=== PATIENT | female | born 1930 | race Two or more races ===

== ENCOUNTER 2017-07-02 03:16 | Inpatient (IN) | payer MEDICARE, MEDICAID ==
[2017-07-02] VITALS (54 sets, daily range): BP systolic 64–167; BP diastolic 22–106
[~2017-07-02] VITALS: Ht 157.5 cm; Wt 81.0 kg
[~2017-07-02 03:16] MED LIST: AGGRENOX; AMITRIP PO; ASPI81CH PO; CAR3125T PO; GLIP10TA82 PO; INSUPOW; OMEPRZOLE PO; RAMI10CA38 PO; SIMV-8 PO; TOLT2TAB6 PO
[2017-07-02] MEDS ORDERED: DIGOXIN 0.25 MG TAB PO ONE (03:45)
[2017-07-02] MEDS ORDERED: SODIUM CHLORIDE 0.9% 1,000 ML IV ONE (03:45)
[2017-07-02 03:53] LABS: Basophils # (auto) 0 uL; Basophils % (auto) 0.2 % (0.0-2.0); Eosinophils # (auto) 0.2 uL; Eosinophils % (auto) 2.3 % (0.0-7.0); Hematocrit 39.4 % (36.0-46.0); Hemoglobin 12.9 g/dL (12.2-16.2); Lymphocytes # (auto) 1.8 uL; Lymphocytes % (auto) 22.1 % (10.0-50.0); Mean Corpuscular Hemoglobin 32.3 pg (28.0-32.0); Mean Corpuscular Hgb Conc. 32.8 g/dL (32.0-36.0); Mean Corpuscular Volume 98.5 fL (80.0-100.0); Monocytes # (auto) 0.5 uL; Monocytes % (auto) 6.7 % (0.0-12.0); Neutrophils # (auto) 5.5 uL; Neutrophils % (auto) 68.7 % (37.0-80.0); Nucleated Red Blood Cells % 0.1 %; Platelet Count (auto) 148 10^3/uL (140-450); Red Cell Distribution Width 13.8 % (11.8-14.3)
[2017-07-02 04:26] LABS: BUN/Creatinine Ratio 21.3; Bilirubin, Total 0.2 mg/dL (0.2-1.0); Calcium 8.1 mg/dL (8.5-10.1); Magnesium 2.4 mg/dL (1.6-2.6); Potassium 3.8 mmol/L (3.5-5.1); Total Protein 6.7 g/dL (6.4-8.2)
[2017-07-02 04:46] LABS: INR 0.98 (0.9-1.15); Partial Thromboplastin Time 27.8 sec (22.64-33.71); Prothrombin Time 10.7 sec (9.37-12.3)
[2017-07-02] MEDS ORDERED: HEPARIN IN NS 1000U/500ML (2UNIT/ML) 500 ML BAG/KIT IV ONE (06:30)
[2017-07-02] MEDS ORDERED: HEPARIN SODIUM (PORCINE) 5000 UNITS/ML 1ML VIAL ONE (06:40)
[2017-07-02] MEDS ORDERED: HEPARIN SODIUM (PORCINE) 5000 UNITS/ML 1ML VIAL IV ONE (06:45)
[2017-07-02] MEDS ORDERED: HEPARIN 1,000 UNITS/ml 1ML VIAL IV ONE (06:45)
[2017-07-02] MEDS ORDERED: AMIODARONE HCL (50 MG/ ML) 3 ML VIAL IV ONE (06:47)
[2017-07-02] MEDS ORDERED: NOREPINEPHRINE 8 MG/250ML KIT 250 ML IV SCH (06:49)
[2017-07-02] MEDS ORDERED: ONDANSETRON HCL 4 MG/2 ML VIAL ONE (06:51)
[2017-07-02] MEDS ORDERED: NOREPINEPHRINE 8 MG/250ML KIT 250 ML IV ONE (06:52)
[2017-07-02] MEDS ORDERED: AMIODARONE HCL 900 MG in DEXTROSE 500 ML IV SCH ×2 (06:59→12:59)
[2017-07-02] MEDS ORDERED: DIGOXIN (250MCG/ML) 2 ML AMPULE IV ONE ×2 (07:00→12:00)
[2017-07-02] MEDS ORDERED: ONDANSETRON HCL 4 MG/2 ML VIAL IV ONE (07:00)
[2017-07-02] MEDS ORDERED: AMIODARONE HCL 150 MG in D5W 5% 100 ML IV ONE (07:00)
[2017-07-02] MEDS ORDERED: METOPROLOL TARTRATE 1MG/1ML-5ML VIAL IV PRN (07:15)
[2017-07-02 07:46] LABS: Urine Bacteria FEW /hpf (None Seen); Urine Blood Negative /uL (Negative); Urine Hyaline Cast MANY /lpf (0 - 2); Urine Mucus FEW (None Seen); Urine Specific Gravity 1.027 (1.001-1.035); Urine WBC 9 /hpf (0 - 5)
[2017-07-02] MEDS: ENOXAPARIN SOD 80 MG/0.8ML SYRINGE SC SCH ×2 (08:00→23:00)
[2017-07-02] MEDS: PHENYLEPHRINE INJ 20 MG in D5W 5% 250 ML IV SCH ×2 (08:13→15:59)
[2017-07-02] MEDS ORDERED: LIDOCAINE 1% HCL (LOCAL ANESTH.) INJ 20ML MDV ONE (08:38)
[2017-07-02] MEDS ORDERED: DEXTROSE (50%) 50ML SYRG IV PRN (09:00)
[2017-07-02] MEDS ORDERED: NITROGLYCERIN 0.4 MG SL TAB SL PRN (09:00)
[2017-07-02] MEDS ORDERED: TEMAZEPAM 15 MG CAP PO PRN (09:00)
[2017-07-02] MEDS ORDERED: ACETAMINOPHEN 325 MG TAB PO PRN (09:00)
[2017-07-02] MEDS ORDERED: MORPHINE SULFATE 4 MG/ML SYR/VIAL IV PRN (09:00)
[2017-07-02] MEDS ORDERED: HYDROcodone-ACET 5/325MG TAB PO PRN (09:00)
[2017-07-02] MEDS: NOREPINEPHRINE 8 MG/250ML KIT 250 ML IV SCH (09:15)
[2017-07-02] MEDS: ASPirin-EC 81 mg tab PO SCH (09:38)
[2017-07-02] MEDS: PANTOPRAZOLE 40 MG/10 ML VIAL IV SCH (09:39)
[2017-07-02] MEDS: MULTIPLE VITAMIN TAB PO SCH (09:43)
[2017-07-02] MEDS ORDERED: FAMOTIDINE 20 MG TAB PO SCH ×2 (10:00)
[2017-07-02] MEDS: ACCU-CHEK COMFORT CURVE STRIP VI SCH ×3 (12:00→22:30)
[2017-07-02] MEDS: Boost Glucose Control 8 Ounces PO SCH ×2 (13:00→18:41)
[2017-07-02] MEDS: SODIUM CHLOR 0.9% PF (SALINE LOCK) 10ML VIAL IV SCH ×2 (14:00→22:30)
[2017-07-02] MEDS ORDERED: PHENYLEPHRINE IV 250 ML IV ONE ×2 (14:02→18:35)
[2017-07-02] MEDS: InsuLIN REG 1unit/0.01ml Soln (100units/ml) SC SCH ×3 (15:53→22:30)
[2017-07-02] MEDS ORDERED: FUROSEMIDE 100 MG/10ML VIAL IV ONE (16:45)
[2017-07-02] MEDS: MORPHINE SULFATE 4 MG/ML SYR/VIAL IV PRN (22:00)
[2017-07-02] MEDS: ATORVASTATIN 20 MG TAB PO SCH (22:00)
[2017-07-02] MEDS ORDERED: FUROSEMIDE 40 MG/4 ML VIAL ONE (22:10)
[2017-07-02] MEDS ORDERED: FUROSEMIDE 40 MG/4 ML VIAL IV ONE (22:15)
[2017-07-02] MEDS: ONDANSETRON HCL 4 MG/2 ML VIAL IV PRN (23:50)
[2017-07-03] VITALS (65 sets, daily range): BP systolic 95–177; BP diastolic 37–102
[2017-07-03] MEDS ORDERED: LORazepam 2MG/ML-1ML VIAL IV ONE (00:30)
[2017-07-03] MEDS ORDERED: LORazepam 2MG/ML-1ML VIAL ONE (00:36)
[2017-07-03] MEDS: PHENYLEPHRINE INJ 20 MG in D5W 5% 250 ML IV SCH ×2 (00:40→09:00)
[2017-07-03 04:39] LABS: Basophils # (auto) 0 uL; Basophils % (auto) 0.2 % (0.0-2.0); Eosinophils # (auto) 0 uL; Hematocrit 41.8 % (36.0-46.0); Hemoglobin 13.5 g/dL (12.2-16.2); Lymphocytes # (auto) 1.5 uL; Lymphocytes % (auto) 15.9 % (10.0-50.0); Mean Corpuscular Hemoglobin 32.4 pg (28.0-32.0); Mean Corpuscular Hgb Conc. 32.2 g/dL (32.0-36.0); Mean Corpuscular Volume 100.5 fL (80.0-100.0); Monocytes # (auto) 0.6 uL; Monocytes % (auto) 6.7 % (0.0-12.0); Neutrophils # (auto) 7.2 uL; Neutrophils % (auto) 77.2 % (37.0-80.0); Platelet Count (auto) 125 10^3/uL (140-450); Red Blood Cells 4.16 10^6/uL (4.0-5.20); Red Cell Distribution Width 14.1 % (11.8-14.3); White Blood Cell 9.3 10^3/uL (4.4-10.8)
[2017-07-03 04:54] LABS: Alanine Aminotransferase 360 U/L (13-56); Anion Gap 12 (5-15); Aspartate Aminotransferase 760 U/L (15-37); BUN/Creatinine Ratio 18.7; Blood Urea Nitrogen 43 mg/dL (7-18); Calcium 7.9 mg/dL (8.5-10.1); Carbon Dioxide 24 mmol/L (21-32); Chloride 100 mmol/L (98-107); GFR African American 26 mL/min; GFR Non-African American 21 mL/min; Glucose 256 mg/dL (74-106); Potassium 4.9 mmol/L (3.5-5.1); Sodium 136 mmol/L (136-145)
[2017-07-03 05:12] LABS: Alkaline Phosphatase 88 U/L (45-117); Bilirubin, Total 0.4 mg/dL (0.2-1.0); Total Protein 6.9 g/dL (6.4-8.2)
[2017-07-03] MEDS: SODIUM CHLOR 0.9% PF (SALINE LOCK) 10ML VIAL IV SCH ×3 (06:12→22:12)
[2017-07-03] MEDS: InsuLIN REG 1unit/0.01ml Soln (100units/ml) SC SCH ×4 (06:31→22:12)
[2017-07-03] MEDS: ACCU-CHEK COMFORT CURVE STRIP VI SCH ×4 (06:31→22:12)
[2017-07-03] MEDS: Boost Glucose Control 8 Ounces PO SCH ×3 (09:00→18:01)
[2017-07-03] MEDS: NOREPINEPHRINE 8 MG/250ML KIT 250 ML IV SCH (09:15)
[2017-07-03] MEDS: ONDANSETRON HCL 4 MG/2 ML VIAL IV PRN (09:26)
[2017-07-03] MEDS: PANTOPRAZOLE 40 MG/10 ML VIAL IV SCH (09:26)
[2017-07-03] MEDS ORDERED: LIDOCAINE 50MG/5ML INJ 5ML SYRINGE IV ONE (10:00)
[2017-07-03] MEDS ORDERED: BUMETANIDE (0.25 MG/ML) INJ 10ML IV ONE (10:00)
[2017-07-03] MEDS: ENOXAPARIN SOD 80 MG/0.8ML SYRINGE SC SCH ×2 (12:20→23:00)
[2017-07-03] MEDS: ASPirin-EC 81 mg tab PO SCH (12:31)
[2017-07-03] MEDS: MULTIPLE VITAMIN TAB PO SCH (12:31)
[2017-07-03] MEDS ORDERED: CLOPIDOGREL 300 MG TAB PO ONE (14:30)
[2017-07-03] MEDS: MORPHINE SULFATE 4 MG/ML SYR/VIAL IV PRN (20:20)
[2017-07-03] MEDS ORDERED: LABETALOL HCL 5 MG/ML ML 20ML VIAL IV ONE ×2 (21:45→21:58)
[2017-07-03] MEDS ORDERED: hydrALAZINE HCL 20 MG/ML VL IV PRN (21:45)
[2017-07-03] MEDS: ATORVASTATIN 20 MG TAB PO SCH (22:12)
[2017-07-04] VITALS (44 sets, daily range): BP systolic 114–189; BP diastolic 39–117
[2017-07-04 05:31] LABS: Basophils # (auto) 0.1 uL; Basophils % (auto) 0.7 % (0.0-2.0); Eosinophils # (auto) 0.1 uL; Eosinophils % (auto) 0.9 % (0.0-7.0); Hematocrit 39.5 % (36.0-46.0); Lymphocytes # (auto) 1.5 uL; Lymphocytes % (auto) 16.5 % (10.0-50.0); Mean Corpuscular Hemoglobin 32.7 pg (28.0-32.0); Mean Corpuscular Hgb Conc. 32.9 g/dL (32.0-36.0); Mean Corpuscular Volume 99.6 fL (80.0-100.0); Monocytes # (auto) 0.7 uL; Neutrophils # (auto) 6.9 uL; Neutrophils % (auto) 73.9 % (37.0-80.0); Platelet Count (auto) 110 10^3/uL (140-450); Red Blood Cells 3.96 10^6/uL (4.0-5.20); White Blood Cell 9.3 10^3/uL (4.4-10.8)
[2017-07-04] MEDS: SODIUM CHLOR 0.9% PF (SALINE LOCK) 10ML VIAL IV SCH ×3 (06:30→22:50)
[2017-07-04 06:34] LABS: Albumin 2.8 g/dL (3.4-5.0); BUN/Creatinine Ratio 26.3; Bilirubin, Total 0.3 mg/dL (0.2-1.0); Calcium 7.6 mg/dL (8.5-10.1); Magnesium 2.3 mg/dL (1.6-2.6); Potassium 4.8 mmol/L (3.5-5.1); Total Protein 6.7 g/dL (6.4-8.2)
[2017-07-04] MEDS: InsuLIN REG 1unit/0.01ml Soln (100units/ml) SC SCH ×4 (06:57→20:00)
[2017-07-04] MEDS: ACCU-CHEK COMFORT CURVE STRIP VI SCH ×4 (06:57→20:00)
[2017-07-04] MEDS: ONDANSETRON HCL 4 MG/2 ML VIAL IV PRN (08:45)
[2017-07-04] MEDS: Boost Glucose Control 8 Ounces PO SCH ×3 (08:46→18:07)
[2017-07-04] MEDS: PANTOPRAZOLE 40 MG/10 ML VIAL IV SCH (09:43)
[2017-07-04] MEDS: MULTIPLE VITAMIN TAB PO SCH (09:43)
[2017-07-04] MEDS: CLOPIDOGREL BISULFATE 75 MG TAB PO SCH (09:43)
[2017-07-04] MEDS: BUMETANIDE (0.25 MG/ML) INJ 10ML IV SCH (09:43)
[2017-07-04] MEDS: ASPirin-EC 81 mg tab PO SCH (09:43)
[2017-07-04] MEDS ORDERED: CARVEDILOL 3.125 MG TAB PO ONE (11:15)
[2017-07-04] MEDS: DOCUSATE SOD 100 MG CAP PO PRN (11:53)
[2017-07-04] MEDS ORDERED: DEXTROSE (50%) 50ML SYRG IV PRN (19:30)
[2017-07-04] MEDS ORDERED: ACCU-CHEK COMFORT CURVE STRIP VI SCH (22:00)
[2017-07-04] MEDS: INSULIN LANTUS (GLARGINE) 1 /0.01ml (100units/ml) SC SCH (22:51)
[2017-07-04] MEDS: CARVEDILOL 3.125 MG TAB PO SCH (22:51)
[2017-07-04] MEDS: ATORVASTATIN 20 MG TAB PO SCH (22:51)
[2017-07-04] MEDS: ENOXAPARIN SOD 80 MG/0.8ML SYRINGE SC SCH (22:54)
[2017-07-05] MEDS: ACCU-CHEK COMFORT CURVE STRIP VI SCH ×5 (00:19→21:40)
[2017-07-05] MEDS: InsuLIN REG 1unit/0.01ml Soln (100units/ml) SC SCH ×5 (00:24→21:39)
[2017-07-05 05:28] VITALS: BP 134/52
[2017-07-05] MEDS: SODIUM CHLOR 0.9% PF (SALINE LOCK) 10ML VIAL IV SCH ×3 (05:56→21:39)
[2017-07-05 06:06] LABS: Basophils # (auto) 0 uL; Basophils % (auto) 0.3 % (0.0-2.0); Eosinophils # (auto) 0.2 uL; Eosinophils % (auto) 1.9 % (0.0-7.0); Hematocrit 38.7 % (36.0-46.0); Hemoglobin 12.9 g/dL (12.2-16.2); Lymphocytes # (auto) 1.8 uL; Lymphocytes % (auto) 20.4 % (10.0-50.0); Mean Corpuscular Hemoglobin 32.5 pg (28.0-32.0); Mean Corpuscular Hgb Conc. 33.3 g/dL (32.0-36.0); Mean Corpuscular Volume 97.7 fL (80.0-100.0); Monocytes # (auto) 0.7 uL; Monocytes % (auto) 7.5 % (0.0-12.0); Neutrophils # (auto) 6.2 uL; Neutrophils % (auto) 69.9 % (37.0-80.0); Nucleated Red Blood Cells % 0.1 %; Platelet Count (auto) 115 10^3/uL (140-450); Red Blood Cells 3.97 10^6/uL (4.0-5.20); Red Cell Distribution Width 13.3 % (11.8-14.3); White Blood Cell 8.9 10^3/uL (4.4-10.8)
[2017-07-05 07:34] LABS: Albumin 2.7 g/dL (3.4-5.0); BUN/Creatinine Ratio 28.1; Bilirubin, Total 0.6 mg/dL (0.2-1.0); Total Protein 6.5 g/dL (6.4-8.2)
[2017-07-05 08:02] VITALS: BP 130/58
[2017-07-05] MEDS: Boost Glucose Control 8 Ounces PO SCH ×3 (08:33→18:44)
[2017-07-05] MEDS: PANTOPRAZOLE 40 MG/10 ML VIAL IV SCH (10:23)
[2017-07-05] MEDS: CARVEDILOL 3.125 MG TAB PO SCH ×2 (10:23→21:38)
[2017-07-05] MEDS: BUMETANIDE (0.25 MG/ML) INJ 10ML IV SCH (10:23)
[2017-07-05] MEDS: INSULIN LANTUS (GLARGINE) 1 /0.01ml (100units/ml) SC SCH ×2 (10:24→21:39)
[2017-07-05] MEDS: CLOPIDOGREL BISULFATE 75 MG TAB PO SCH (10:24)
[2017-07-05] MEDS: MULTIPLE VITAMIN TAB PO SCH (10:24)
[2017-07-05] MEDS: ASPirin-EC 81 mg tab PO SCH (10:24)
[2017-07-05] MEDS: ENOXAPARIN SOD 30 MG/0.3 ML SYRINGE SC SCH (10:37)
[2017-07-05] MEDS ORDERED: cefTRIAXone 1GM/10ml IVPUSH 10 ML IV ONE (11:45)
[2017-07-05] MEDS ORDERED: DEXTROSE (50%) 50ML SYRG IV PRN (11:45)
[2017-07-05 13:22] VITALS: BP 136/60
[2017-07-05 17:11] VITALS: BP 135/55
[2017-07-05] MEDS: ATORVASTATIN 20 MG TAB PO SCH (21:38)
[2017-07-05 22:00] VITALS: BP 155/62
[2017-07-06 02:12] VITALS: BP 148/67
[2017-07-06 05:03] VITALS: BP 147/71
[2017-07-06 06:26] LABS: Basophils # (auto) 0 uL; Basophils % (auto) 0.2 % (0.0-2.0); Eosinophils # (auto) 0.2 uL; Eosinophils % (auto) 2.8 % (0.0-7.0); Hematocrit 39.9 % (36.0-46.0); Hemoglobin 13.2 g/dL (12.2-16.2); Lymphocytes # (auto) 1.6 uL; Lymphocytes % (auto) 22.3 % (10.0-50.0); Mean Corpuscular Hemoglobin 32.1 pg (28.0-32.0); Mean Corpuscular Hgb Conc. 33.2 g/dL (32.0-36.0); Mean Corpuscular Volume 96.8 fL (80.0-100.0); Monocytes # (auto) 0.7 uL; Monocytes % (auto) 9.9 % (0.0-12.0); Neutrophils # (auto) 4.6 uL; Neutrophils % (auto) 64.8 % (37.0-80.0); Platelet Count (auto) 118 10^3/uL (140-450); Red Blood Cells 4.12 10^6/uL (4.0-5.20); Red Cell Distribution Width 13.5 % (11.8-14.3); White Blood Cell 7.1 10^3/uL (4.4-10.8)
[2017-07-06] MEDS: SODIUM CHLOR 0.9% PF (SALINE LOCK) 10ML VIAL IV SCH ×3 (06:28→21:51)
[2017-07-06] MEDS: InsuLIN REG 1unit/0.01ml Soln (100units/ml) SC SCH ×4 (06:28→22:04)
[2017-07-06] MEDS: ACCU-CHEK COMFORT CURVE STRIP VI SCH ×4 (06:29→22:03)
[2017-07-06 06:43] LABS: Calcium 8.5 mg/dL (8.5-10.1); Magnesium 2.3 mg/dL (1.6-2.6); Potassium 3.7 mmol/L (3.5-5.1)
[2017-07-06 06:47] LABS: BUN/Creatinine Ratio 31.5
[2017-07-06] MEDS: Boost Glucose Control 8 Ounces PO SCH ×3 (08:00→17:41)
[2017-07-06 09:00] VITALS: BP 130/62
[2017-07-06] MEDS: ASPirin-EC 81 mg tab PO SCH (09:20)
[2017-07-06] MEDS: cefTRIAXone 1GM/10ml IVPUSH 10 ML IV SCH (09:20)
[2017-07-06] MEDS: BUMETANIDE (0.25 MG/ML) INJ 10ML IV SCH (09:20)
[2017-07-06] MEDS: MULTIPLE VITAMIN TAB PO SCH (09:20)
[2017-07-06] MEDS: CLOPIDOGREL BISULFATE 75 MG TAB PO SCH (09:20)
[2017-07-06] MEDS: ENOXAPARIN SOD 30 MG/0.3 ML SYRINGE SC SCH (09:21)
[2017-07-06] MEDS: PANTOPRAZOLE 40 MG/10 ML VIAL IV SCH (09:21)
[2017-07-06] MEDS: CARVEDILOL 3.125 MG TAB PO SCH ×2 (09:21→21:51)
[2017-07-06] MEDS: INSULIN LANTUS (GLARGINE) 1 /0.01ml (100units/ml) SC SCH ×2 (09:31→22:03)
[2017-07-06] MEDS ORDERED: RAMIPRIL 10 MG CAP PO ONE (11:45)
[2017-07-06 13:00] VITALS: BP 126/43
[2017-07-06] MEDS: DOCUSATE SOD 100 MG CAP PO PRN (16:49)
[2017-07-06 17:00] VITALS: BP 139/57
[2017-07-06 21:36] VITALS: BP 134/56
[2017-07-06] MEDS: ATORVASTATIN 20 MG TAB PO SCH (21:51)
[2017-07-07 05:04] VITALS: BP 129/59
[2017-07-07] MEDS: SODIUM CHLOR 0.9% PF (SALINE LOCK) 10ML VIAL IV SCH ×3 (06:27→21:16)
[2017-07-07] MEDS: ACCU-CHEK COMFORT CURVE STRIP VI SCH ×4 (06:27→21:16)
[2017-07-07] MEDS: InsuLIN REG 1unit/0.01ml Soln (100units/ml) SC SCH ×5 (06:28→21:34)
[2017-07-07] MEDS: Boost Glucose Control 8 Ounces PO SCH ×3 (08:00→19:00)
[2017-07-07 08:06] LABS: BUN/Creatinine Ratio 35.3; Calcium 8.6 mg/dL (8.5-10.1); Potassium 3.6 mmol/L (3.5-5.1)
[2017-07-07 09:00] VITALS: BP 133/58
[2017-07-07] MEDS: ENOXAPARIN SOD 30 MG/0.3 ML SYRINGE SC SCH (10:00)
[2017-07-07] MEDS: BUMETANIDE (0.25 MG/ML) INJ 10ML IV SCH (10:00)
[2017-07-07] MEDS: PANTOPRAZOLE 40 MG/10 ML VIAL IV SCH (10:10)
[2017-07-07] MEDS: cefTRIAXone 1GM/10ml IVPUSH 10 ML IV SCH (10:10)
[2017-07-07] MEDS: ASPirin-EC 81 mg tab PO SCH (10:13)
[2017-07-07] MEDS: CLOPIDOGREL BISULFATE 75 MG TAB PO SCH (10:13)
[2017-07-07] MEDS: MULTIPLE VITAMIN TAB PO SCH (10:13)
[2017-07-07] MEDS: CARVEDILOL 3.125 MG TAB PO SCH ×2 (10:17→21:18)
[2017-07-07] MEDS: RAMIPRIL 10 MG CAP PO SCH (10:17)
[2017-07-07] MEDS: INSULIN LANTUS (GLARGINE) 1 /0.01ml (100units/ml) SC SCH ×2 (10:21→21:34)
[2017-07-07] MEDS: DOCUSATE SOD 100 MG CAP PO PRN (10:21)
[2017-07-07 13:00] VITALS: BP 116/42
[2017-07-07 17:00] VITALS: BP 139/55
[2017-07-07] MEDS: ATORVASTATIN 20 MG TAB PO SCH ×2 (21:24→21:33)
[2017-07-07 22:00] VITALS: BP 132/51
[2017-07-08 04:51] VITALS: BP 139/59
[2017-07-08] MEDS: SODIUM CHLOR 0.9% PF (SALINE LOCK) 10ML VIAL IV SCH ×2 (05:07→14:00)
[2017-07-08] MEDS: ACCU-CHEK COMFORT CURVE STRIP VI SCH ×3 (06:12→17:00)
[2017-07-08] MEDS: InsuLIN REG 1unit/0.01ml Soln (100units/ml) SC SCH ×3 (06:24→17:00)
[2017-07-08 06:25] LABS: Basophils # (auto) 0 uL; Basophils % (auto) 0.3 % (0.0-2.0); Eosinophils # (auto) 0.4 uL; Hematocrit 40.8 % (36.0-46.0); Hemoglobin 13.6 g/dL (12.2-16.2); Lymphocytes # (auto) 1.7 uL; Mean Corpuscular Hemoglobin 32.6 pg (28.0-32.0); Mean Corpuscular Hgb Conc. 33.3 g/dL (32.0-36.0); Monocytes # (auto) 0.8 uL; Monocytes % (auto) 10.8 % (0.0-12.0); Neutrophils # (auto) 4.6 uL; Neutrophils % (auto) 60.9 % (37.0-80.0); Nucleated Red Blood Cells % 0.1 %; Platelet Count (auto) 151 10^3/uL (140-450); Red Blood Cells 4.16 10^6/uL (4.0-5.20); Red Cell Distribution Width 13.6 % (11.8-14.3); White Blood Cell 7.6 10^3/uL (4.4-10.8)
[2017-07-08 06:36] LABS: BUN/Creatinine Ratio 36.4; Calcium 9.2 mg/dL (8.5-10.1); Magnesium 2.5 mg/dL (1.6-2.6); Potassium 3.6 mmol/L (3.5-5.1)
[2017-07-08 08:03] VITALS: BP 136/62
[2017-07-08] MEDS: cefTRIAXone 1GM/10ml IVPUSH 10 ML IV SCH (09:08)
[2017-07-08] MEDS: Boost Glucose Control 8 Ounces PO SCH ×2 (09:09→12:03)
[2017-07-08] MEDS ORDERED: FUROSEMIDE 40 MG TAB PO SCH (10:00)
[2017-07-08] MEDS ORDERED: PANTOPRAZOLE 40 MG TAB PO SCH (10:00)
[2017-07-08] MEDS: ENOXAPARIN SOD 30 MG/0.3 ML SYRINGE SC SCH (10:11)
[2017-07-08] MEDS: INSULIN LANTUS (GLARGINE) 1 /0.01ml (100units/ml) SC SCH (10:11)
[2017-07-08] MEDS: CLOPIDOGREL BISULFATE 75 MG TAB PO SCH (10:13)
[2017-07-08] MEDS: ASPirin-EC 81 mg tab PO SCH (10:13)
[2017-07-08] MEDS: MULTIPLE VITAMIN TAB PO SCH (10:13)
[2017-07-08] MEDS: CARVEDILOL 3.125 MG TAB PO SCH (10:14)
[2017-07-08] MEDS: RAMIPRIL 10 MG CAP PO SCH (10:15)
[2017-07-08 11:02] VITALS: BP 144/61
[2017-07-08 11:58] VITALS: BP 133/52
[2017-07-08] MEDS ORDERED: NITR-39 PO (12:23)
[2017-07-08] MEDS ORDERED: FURO40TA4 PO (12:23)
[2017-07-08] MEDS ORDERED: CLOP75TA28 PO (12:23)
[2017-07-08] MEDS ORDERED: PANT40T PO (12:23)
[2017-07-08] MEDS ORDERED: ASP81EC PO (12:23)
[2017-07-08] MEDS ORDERED: CARV6.25 PO (12:23)
[2017-07-08 12:48] LABS: Alanine Aminotransferase 255 U/L (13-56); Alkaline Phosphatase 97 U/L (45-117); Aspartate Aminotransferase 73 U/L (15-37); Bilirubin, Direct < 0.1 mg/dL (0-0.2); Bilirubin, Total 0.3 mg/dL (0.2-1.0); Total Protein 7.3 g/dL (6.4-8.2)
== END 2017-07-08 17:50 | disposition home health service (06) | DRG 190 ==
LOC: EDBD 03:16 → ER 03:19 → CATH 03:20 → OVERFLOW 03:21 → ICU WEST 09:55 → TELE-WESTW 07-04 21:49
PROVIDERS: ADMIT Internal Medicine; ATTEND Internal Medicine
PROC: 02HV33Z Insertion of Infusion Device into Superior Vena Cava, Percutaneous Approach (ICD-10-PCS; principal; 2017-07-02)
PROC: 5A09357 Assistance with Respiratory Ventilation, Less than 24 Consecutive Hours, Continuous Positive Airway Pressure (ICD-10-PCS; 2017-07-02)
PROC: 5A09357 Assistance with Respiratory Ventilation, Less than 24 Consecutive Hours, Continuous Positive Airway Pressure (ICD-10-PCS; 2017-07-03)
PROC: 5A09357 Assistance with Respiratory Ventilation, Less than 24 Consecutive Hours, Continuous Positive Airway Pressure (ICD-10-PCS; 2017-07-04)
PROC: 5A09357 Assistance with Respiratory Ventilation, Less than 24 Consecutive Hours, Continuous Positive Airway Pressure (ICD-10-PCS; 2017-07-05)
DX: I21.4 Non-ST elevation (NSTEMI) myocardial infarction (principal); R57.0 Cardiogenic shock; J96.00 Acute respiratory failure, unspecified whether with hypoxia or hypercapnia; I50.21 Acute systolic (congestive) heart failure; E44.0 Moderate protein-calorie malnutrition; D68.69 Other thrombophilia; E11.21 Type 2 diabetes mellitus with diabetic nephropathy; N18.3 Chronic kidney disease, stage 3 (moderate); K21.9 Gastro-esophageal reflux disease without esophagitis; E11.22 Type 2 diabetes mellitus with diabetic chronic kidney disease; I48.92 Unspecified atrial flutter; F03.90 Unspecified dementia, unspecified severity, without behavioral disturbance, psychotic disturbance, mood disturbance, and anxiety; I25.10 Atherosclerotic heart disease of native coronary artery without angina pectoris; E78.5 Hyperlipidemia, unspecified; I44.7 Left bundle-branch block, unspecified; E66.9 Obesity, unspecified; I12.9 Hypertensive chronic kidney disease with stage 1 through stage 4 chronic kidney disease, or unspecified chronic kidney disease; E66.01 Morbid (severe) obesity due to excess calories; B96.1 Klebsiella pneumoniae [K. pneumoniae] as the cause of diseases classified elsewhere; I70.0 Atherosclerosis of aorta; R79.89 Other specified abnormal findings of blood chemistry; I13.0 Hypertensive heart and chronic kidney disease with heart failure and stage 1 through stage 4 chronic kidney disease, or unspecified chronic kidney disease; I48.0 Paroxysmal atrial fibrillation; N39.0 Urinary tract infection, site not specified; Z82.3 Family history of stroke; Z83.3 Family history of diabetes mellitus; Z86.73 Personal history of transient ischemic attack (TIA), and cerebral infarction without residual deficits; I25.2 Old myocardial infarction; Z68.32 Body mass index [BMI] 32.0-32.9, adult; Z79.899 Other long term (current) drug therapy; Z79.4 Long term (current) use of insulin; Z71.3 Dietary counseling and surveillance
CPT/HCPCS: 36415; 36558; 36600; 51702; 71045; 80048; 80053; 80061; 80076; 81001; 82805; 82962; 83036; 83735; 83880; 84443; 84484; 85025; 85379; 85610; 85730; 87081; 87086; 87088; 87186; 93005; 93306; 94660; 94761; 96361; 96374; 96375; 97116; 97530; C1751; C9113; J1815; J2001; J2405; J7060